=== PATIENT | female | born 1940 | race Caucasian/White ===

== ENCOUNTER 2020-12-12 17:45 | Inpatient (IN) | payer MEDICARE, OTHER ==
[~2020-12-12 17:45] MED LIST: Iopamidol-370 76% 500 ML 1 ML ONE
[2020-12-12] MEDS ORDERED: cefTRIAXone\\ROCEPHIN 1 GM VIAL ONE (18:22)
[2020-12-12 18:36] LABS: #Eosinphils 0.2 thou/uL (0.0-0.7); #Lymphocytes 1.9 thou/uL (1.20-3.40); #Monocytes 1.3 thou/uL (0.11-0.59); #Neutrophils 9.7 thou/uL (1.40-6.50); %Basophils 0.1 % (0.0-1.0); %Eosinophils 1.2 % (0.0-10.0); %Lymphocytes 14.6 % (21.0-51.0); %Monocytes 9.6 % (0.0-10.0); %Neutrophils 74.5 % (42.0-75.0); Hemoglobin 11.7 g/dL (12.0-16.0); Mean Corpuscular HGB CONC 32.5 g/dL (32.0-36.0); Mean Corpuscular Hemoglobin 28.4 pg (27.0-31.0); Mean Corpuscular Volume 87.2 fL (78.0-98.0); Mean Platelet Volume 8.5 fL (7.4-10.4); Platelet Count 253 thou/uL (130-400); RBC Distribution Width 13.1 % (11.5-14.5); Red Blood Cell (RBC) Count 4.13 mill/uL (4.20-5.40)
[2020-12-12 19:03] LABS: ALT (SGPT) 15 U/L (8-55); AST (SGOT) 21 U/L (5-34); Albumin 3.7 g/dL (3.4-4.8); Alkaline Phosphatase 87 U/L (40-110); Anion Gap 15 mmol/L (10-20); BUN (Urea Nitrogen) 14 mg/dL (9.8-20.1); Bilirubin, Total 0.4 mg/dL (0.2-1.2); Calc. Creatinine Clearance 0 mL/min (70-130); Calcium 9.4 mg/dL (7.8-10.44); Carbon Dioxide 25 mmol/L (23-31); Chloride 92 mmol/L (98-107); Globulin 3.3 g/dL (2.4-3.5); Glucose 132 mg/dL (83-110); Potassium 4.1 mmol/L (3.5-5.1); Sodium 128 mmol/L (136-145)
[2020-12-12] MEDS ORDERED: Vancomycin 1 GM/200 ML BAG ONE ×3 (19:13→19:48)
[2020-12-12 19:35] LABS: Anion Gap 14 mmol/L (10-20); BUN (Urea Nitrogen) 14 mg/dL (9.8-20.1); Calc. Creatinine Clearance 0 mL/min (70-130); Carbon Dioxide 25 mmol/L (23-31); Chloride 93 mmol/L (98-107); Glucose 103 mg/dL (83-110); Potassium 3.8 mmol/L (3.5-5.1); Sodium 128 mmol/L (136-145)
[2020-12-12 19:51] LABS: SARS-CoV-2 NAA Rapid Test Not Detected (NotDetected)
[2020-12-12] MEDS ORDERED: Guaifenesin DM 100-10/5 ML UDCUP PO PRN (21:52)
[2020-12-12] MEDS ORDERED: hydrALAZINE 20 MG/ML VIAL SLOW IVP PRN (22:03)
[2020-12-12 22:44] VITALS: BMI 28.6
[2020-12-12] MEDS ORDERED: guaiFENesin/Codeine 200 mg/20 mg 10 ml Cup PO PRN (23:00)
[2020-12-12] MEDS: guaiFENesin ER 600 MG TAB PO SCH ×2 (23:35→23:42)
[2020-12-13] MEDS: HYDROcodone/Acetaminophen 5/325 mg Tablet PO PRN ×3 (04:45→20:31)
[2020-12-13 06:01] LABS: Hemoglobin 10.9 g/dL (12.0-16.0); Mean Corpuscular HGB CONC 31.6 g/dL (32.0-36.0); Mean Corpuscular Hemoglobin 27.7 pg (27.0-31.0); Mean Corpuscular Volume 87.8 fL (78.0-98.0); Mean Platelet Volume 8.1 fL (7.4-10.4); Platelet Count 196 thou/uL (130-400); RBC Distribution Width 13.1 % (11.5-14.5); Red Blood Cell (RBC) Count 3.93 mill/uL (4.20-5.40); White Blood Cell (WBC) Count 9.1 thou/uL (4.8-10.8)
[2020-12-13 06:02] LABS: Band 1 % (5-11); Eosinophils 1 % (0-10); Hypochromia SLIGHT = 6-15 cells (100X) (0-5/hpf); Lymphocytes 20 % (21-51); MDiff Complete? YES; Monocytes 5 % (0-10); Neutrophil 73 % (42-75); Platelet Morphology Comment Appears Adequate
[2020-12-13 06:18] LABS: ALT (SGPT) 11 U/L (8-55); AST (SGOT) 14 U/L (5-34); Albumin 3.3 g/dL (3.4-4.8); Alkaline Phosphatase 77 U/L (40-110); Anion Gap 12 mmol/L (10-20); BUN (Urea Nitrogen) 11 mg/dL (9.8-20.1); Bilirubin, Total 0.3 mg/dL (0.2-1.2); Calc. Creatinine Clearance 65 mL/min (70-130); Calcium 9.2 mg/dL (7.8-10.44); Carbon Dioxide 28 mmol/L (23-31); Chloride 98 mmol/L (98-107); Globulin 2.9 g/dL (2.4-3.5); Glucose 88 mg/dL (83-110); Potassium 4.7 mmol/L (3.5-5.1); Protein, Total 6.2 g/dL (5.8-8.1); Sodium 133 mmol/L (136-145)
[2020-12-13] MEDS: Enoxaparin Sodium 40 MG/0.4 ML SYRINGE SC SCH (08:54)
[2020-12-13] MEDS: Cefepime 1 GM in Sodium Chloride 0.9% 100 ML IVPB SCH ×2 (08:54→20:30)
[2020-12-13] MEDS: Lisinopril 10 MG TAB PO SCH (08:55)
[2020-12-13] MEDS: Allopurinol 300 MG TAB PO SCH (08:55)
[2020-12-13] MEDS: Famotidine 20 MG TAB PO SCH ×2 (08:56→20:30)
[2020-12-13] MEDS: Aspirin 325 mg Enteric Coated Tablet PO SCH (08:56)
[2020-12-13] MEDS: Amlodipine 5 MG TAB PO SCH (08:56)
[2020-12-13] MEDS: guaiFENesin ER 600 MG TAB PO SCH ×2 (08:57→20:30)
[2020-12-13] MEDS: Lantus 1000 UNITS/10 ML VIAL SC SCH ×2 (09:20→21:17)
[2020-12-13] MEDS ORDERED: Lidocaine 4% PF 5 ML AMP NEB SCH (10:15)
[2020-12-13] MEDS ORDERED: Iopamidol-370 76% 500 ML 1 ML ONE (10:42)
[2020-12-13] MEDS: HumaLOG 300 UNITS/3 ML VIAL SC PRN ×2 (12:08→20:39)
[2020-12-13] MEDS: Atorvastatin Calcium 10 MG TAB PO SCH (20:30)
[2020-12-14] MEDS ORDERED: Fentanyl 100 MCG/2 ML VIAL ONE (06:58)
[2020-12-14] MEDS ORDERED: Rocuronium Bromide 10 MG/ML (10ML VIAL) ONE (08:00)
[2020-12-14] MEDS ORDERED: Lidocaine 1% PF 5 ML VIAL ONE (08:00)
[2020-12-14] MEDS ORDERED: Glycopyrrolate 0.2 MG/ML 5 ML SYRINGE ONE (08:00)
[2020-12-14] MEDS ORDERED: Ondansetron PF 4 MG/2 ML Vial ONE (08:00)
[2020-12-14] MEDS ORDERED: Dexamethasone 20 MG/5 ML VIAL ONE (08:00)
[2020-12-14] MEDS ORDERED: PROPOFOL 200 MG/20 ML VIAL ONE (08:00)
[2020-12-14] MEDS: guaiFENesin/Codeine 200 mg/20 mg 10 ml Cup PO PRN ×3 (10:04→22:07)
[2020-12-14] MEDS: Cefepime 1 GM in Sodium Chloride 0.9% 100 ML IVPB SCH ×2 (10:05→20:57)
[2020-12-14] MEDS: Benzonatate 100 MG CAP PO SCH ×3 (11:00→22:06)
[2020-12-14] MEDS: Amlodipine 5 MG TAB PO SCH (11:11)
[2020-12-14] MEDS: Famotidine 20 MG TAB PO SCH ×2 (11:11→20:57)
[2020-12-14] MEDS: Aspirin 325 mg Enteric Coated Tablet PO SCH (11:11)
[2020-12-14] MEDS: Lisinopril 10 MG TAB PO SCH (11:12)
[2020-12-14] MEDS: Enoxaparin Sodium 40 MG/0.4 ML SYRINGE SC SCH (11:12)
[2020-12-14] MEDS: Allopurinol 300 MG TAB PO SCH (11:12)
[2020-12-14] MEDS: Lantus 1000 UNITS/10 ML VIAL SC SCH ×2 (11:37→20:58)
[2020-12-14] MEDS: Lidocaine 5% Patch TD SCH (12:05)
[2020-12-14] MEDS ORDERED: Polyethylene Glycol 3350 17 GM Packet PO PRN (14:24)
[2020-12-14] MEDS: Docusate 100 MG CAP PO PRN ×2 (14:50→20:57)
[2020-12-14] MEDS: HumaLOG 300 UNITS/3 ML VIAL SC PRN ×2 (18:27→20:58)
[2020-12-14 19:18] LABS: Hemoglobin A1c 8.4 % (4.0-6.0)
[2020-12-14] MEDS: Atorvastatin Calcium 10 MG TAB PO SCH (20:57)
[2020-12-14] MEDS: guaiFENesin ER 600 MG TAB PO SCH (21:00)
[2020-12-15] MEDS: Transdermal Patch Removal TOP SCH ×2 (00:40→19:51)
[2020-12-15] MEDS: HYDROcodone/Acetaminophen 5/325 mg Tablet PO PRN ×2 (01:43→20:51)
[2020-12-15] MEDS: guaiFENesin/Codeine 200 mg/20 mg 10 ml Cup PO PRN ×3 (04:13→17:17)
[2020-12-15] MEDS: HumaLOG 300 UNITS/3 ML VIAL SC PRN ×4 (05:18→20:43)
[2020-12-15] MEDS: metFORMIN 500 MG TAB PO SCH ×3 (09:00→20:47)
[2020-12-15] MEDS: Hydrochlorothiazide 25 MG TAB PO SCH ×2 (09:57→12:51)
[2020-12-15] MEDS: Allopurinol 300 MG TAB PO SCH (09:57)
[2020-12-15] MEDS: Bisoprolol Fumarate/HCTZ 5 mg/6.25 mg Tablet PO SCH ×2 (09:57→12:45)
[2020-12-15] MEDS: Aspirin 325 mg Enteric Coated Tablet PO SCH (09:58)
[2020-12-15] MEDS: Cefepime 1 GM in Sodium Chloride 0.9% 100 ML IVPB SCH ×2 (09:58→21:01)
[2020-12-15] MEDS: Amlodipine 5 MG TAB PO SCH (09:58)
[2020-12-15] MEDS: Benzonatate 100 MG CAP PO SCH ×3 (09:58→19:47)
[2020-12-15] MEDS: Enoxaparin Sodium 40 MG/0.4 ML SYRINGE SC SCH (09:59)
[2020-12-15] MEDS: Famotidine 20 MG TAB PO SCH ×2 (09:59→20:46)
[2020-12-15] MEDS: Lisinopril 10 MG TAB PO SCH (09:59)
[2020-12-15] MEDS: Lantus 1000 UNITS/10 ML VIAL SC SCH ×2 (10:00→20:44)
[2020-12-15] MEDS: Lidocaine 5% Patch TD SCH (12:00)
[2020-12-15] MEDS ORDERED: metFORMIN 500 MG TAB PO SCH (12:00)
[2020-12-15] MEDS: Atorvastatin Calcium 10 MG TAB PO SCH (20:47)
[2020-12-15] MEDS: Zolpidem Tartrate 5 MG TAB PO PRN (20:56)
[2020-12-15] MEDS: Bisacodyl 5 MG TAB PO PRN (20:58)
[2020-12-16] MEDS: Benzonatate 100 MG CAP PO SCH ×3 (09:44→21:07)
[2020-12-16] MEDS: Aspirin 325 mg Enteric Coated Tablet PO SCH (09:54)
[2020-12-16] MEDS: Famotidine 20 MG TAB PO SCH ×2 (09:55→21:20)
[2020-12-16] MEDS: Hydrochlorothiazide 25 MG TAB PO SCH (09:55)
[2020-12-16] MEDS: Allopurinol 300 MG TAB PO SCH (09:55)
[2020-12-16] MEDS: metFORMIN 500 MG TAB PO SCH ×2 (09:55→21:17)
[2020-12-16] MEDS: Bisacodyl 5 MG TAB PO PRN (09:55)
[2020-12-16] MEDS: Amlodipine 5 MG TAB PO SCH (09:55)
[2020-12-16] MEDS: Lisinopril 10 MG TAB PO SCH (09:56)
[2020-12-16] MEDS: Bisoprolol Fumarate/HCTZ 5 mg/6.25 mg Tablet PO SCH (09:56)
[2020-12-16] MEDS: Cefepime 1 GM in Sodium Chloride 0.9% 100 ML IVPB SCH ×2 (09:56→21:22)
[2020-12-16] MEDS: Enoxaparin Sodium 40 MG/0.4 ML SYRINGE SC SCH (09:56)
[2020-12-16] MEDS: Lantus 1000 UNITS/10 ML VIAL SC SCH ×2 (09:57→21:20)
[2020-12-16] MEDS: guaiFENesin/Codeine 200 mg/20 mg 10 ml Cup PO PRN (09:57)
[2020-12-16] MEDS: Lidocaine 5% Patch TD SCH (13:10)
[2020-12-16] MEDS: HumaLOG 300 UNITS/3 ML VIAL SC PRN ×2 (18:23→21:21)
[2020-12-16] MEDS: HYDROcodone/Acetaminophen 5/325 mg Tablet PO PRN (21:19)
[2020-12-16] MEDS: Zolpidem Tartrate 5 MG TAB PO PRN (21:20)
[2020-12-16] MEDS: Atorvastatin Calcium 10 MG TAB PO SCH (21:20)
[2020-12-17] MEDS: Transdermal Patch Removal TOP SCH (00:22)
[2020-12-17] MEDS: metFORMIN 500 MG TAB PO SCH ×2 (10:07→20:32)
[2020-12-17] MEDS: Bisoprolol Fumarate/HCTZ 5 mg/6.25 mg Tablet PO SCH (10:08)
[2020-12-17] MEDS: Hydrochlorothiazide 25 MG TAB PO SCH (10:08)
[2020-12-17] MEDS: Bisacodyl 5 MG TAB PO PRN (10:09)
[2020-12-17] MEDS: Lisinopril 10 MG TAB PO SCH (10:09)
[2020-12-17] MEDS: Allopurinol 300 MG TAB PO SCH (10:09)
[2020-12-17] MEDS: Famotidine 20 MG TAB PO SCH ×2 (10:09→20:32)
[2020-12-17] MEDS: Amlodipine 5 MG TAB PO SCH (10:09)
[2020-12-17] MEDS: Cefepime 1 GM in Sodium Chloride 0.9% 100 ML IVPB SCH ×2 (10:10→20:32)
[2020-12-17] MEDS: Benzonatate 100 MG CAP PO SCH ×3 (10:10→20:32)
[2020-12-17] MEDS: guaiFENesin/Codeine 200 mg/20 mg 10 ml Cup PO PRN ×2 (10:11→21:05)
[2020-12-17] MEDS: HYDROcodone/Acetaminophen 5/325 mg Tablet PO PRN (10:11)
[2020-12-17] MEDS: Lantus 1000 UNITS/10 ML VIAL SC SCH ×2 (10:19→20:33)
[2020-12-17] MEDS ORDERED: Bisacodyl 10 MG SUPP PR PRN (10:26)
[2020-12-17] MEDS ORDERED: Ondansetron PF 4 MG/2 ML Vial IVP PRN (11:55)
[2020-12-17] MEDS ORDERED: Fleet Enema 133 ML BOT PR SCH (12:00)
[2020-12-17] MEDS: Metoclopramide HCl 10 MG/2 ML VIAL IVP SCH ×2 (12:29→20:32)
[2020-12-17] MEDS: Lidocaine 5% Patch TD SCH (12:30)
[2020-12-17] MEDS: Enoxaparin Sodium 40 MG/0.4 ML SYRINGE SC SCH (12:43)
[2020-12-17] MEDS: Aspirin 325 mg Enteric Coated Tablet PO SCH (12:43)
[2020-12-17] MEDS: Atorvastatin Calcium 10 MG TAB PO SCH (20:32)
[2020-12-17] MEDS: HumaLOG 300 UNITS/3 ML VIAL SC PRN (20:33)
[2020-12-17] MEDS: Zolpidem Tartrate 5 MG TAB PO PRN (21:04)
[2020-12-18] MEDS: Transdermal Patch Removal TOP SCH (00:43)
[2020-12-18] MEDS: Metoclopramide HCl 10 MG/2 ML VIAL IVP SCH (05:05)
[2020-12-18 08:50] VITALS: BP 134/75; TEMP 98.6
[2020-12-18 09:00] LABS: #Eosinphils 0.3 thou/uL (0.0-0.7); #Lymphocytes 1.9 thou/uL (1.20-3.40); #Monocytes 1.1 thou/uL (0.11-0.59); #Neutrophils 9.2 thou/uL (1.40-6.50); %Basophils 0.3 % (0.0-1.0); %Eosinophils 2.1 % (0.0-10.0); %Lymphocytes 15.5 % (21.0-51.0); %Monocytes 8.6 % (0.0-10.0); %Neutrophils 73.6 % (42.0-75.0); Hemoglobin 11.8 g/dL (12.0-16.0); Mean Corpuscular HGB CONC 30.6 g/dL (32.0-36.0); Mean Corpuscular Volume 88.2 fL (78.0-98.0); Mean Platelet Volume 8.3 fL (7.4-10.4); Platelet Count 273 thou/uL (130-400); RBC Distribution Width 13.3 % (11.5-14.5); Red Blood Cell (RBC) Count 4.37 mill/uL (4.20-5.40); White Blood Cell (WBC) Count 12.4 thou/uL (4.8-10.8)
[2020-12-18] MEDS: Bisoprolol Fumarate/HCTZ 5 mg/6.25 mg Tablet PO SCH (09:19)
[2020-12-18] MEDS: Famotidine 20 MG TAB PO SCH (09:19)
[2020-12-18] MEDS: Hydrochlorothiazide 25 MG TAB PO SCH (09:19)
[2020-12-18] MEDS: Benzonatate 100 MG CAP PO SCH (09:19)
[2020-12-18] MEDS: metFORMIN 500 MG TAB PO SCH (09:19)
[2020-12-18 09:20] LABS: Anion Gap 13 mmol/L (10-20); BUN (Urea Nitrogen) 15 mg/dL (9.8-20.1); Calc. Creatinine Clearance 63 mL/min (70-130); Calcium 9.5 mg/dL (7.8-10.44); Carbon Dioxide 28 mmol/L (23-31); Chloride 97 mmol/L (98-107); Glucose 131 mg/dL (83-110); Potassium 4.3 mmol/L (3.5-5.1); Sodium 134 mmol/L (136-145)
[2020-12-18] MEDS: Lisinopril 10 MG TAB PO SCH (09:20)
[2020-12-18] MEDS: Allopurinol 300 MG TAB PO SCH (09:20)
[2020-12-18] MEDS: Amlodipine 5 MG TAB PO SCH (09:20)
[2020-12-18] MEDS: Lantus 1000 UNITS/10 ML VIAL SC SCH (09:20)
[2020-12-18] MEDS: Cefepime 1 GM in Sodium Chloride 0.9% 100 ML IVPB SCH (09:22)
[2020-12-18] MEDS ORDERED: Furosemide 20 MG/2 ML VIAL SLOW IVP SCH (10:45)
== END 2020-12-18 12:15 | disposition home or self-care (01) | DRG 167 ==
LOC: ERS 17:45 → ONC 20:27
PROVIDERS: ADMIT Internal Medicine; ATTEND Internal Medicine
PROC: 0BBD8ZX Excision of Right Middle Lung Lobe, Via Natural or Artificial Opening Endoscopic, Diagnostic (ICD-10-PCS; principal; 2020-12-14)
PROC: 0BDD8ZX Extraction of Right Middle Lung Lobe, Via Natural or Artificial Opening Endoscopic, Diagnostic (ICD-10-PCS; 2020-12-14)
DX: J98.4 Other disorders of lung (principal); K86.3 Pseudocyst of pancreas; J98.11 Atelectasis; E87.1 Hypo-osmolality and hyponatremia; E44.0 Moderate protein-calorie malnutrition; J18.9 Pneumonia, unspecified organism; Z66 Do not resuscitate; Z20.822 Contact with and (suspected) exposure to COVID-19; M10.9 Gout, unspecified; E78.5 Hyperlipidemia, unspecified; E78.00 Pure hypercholesterolemia, unspecified; K21.9 Gastro-esophageal reflux disease without esophagitis; E11.9 Type 2 diabetes mellitus without complications; I10 Essential (primary) hypertension; Z77.22 Contact with and (suspected) exposure to environmental tobacco smoke (acute) (chronic); G89.29 Other chronic pain; K59.00 Constipation, unspecified; R11.2 Nausea with vomiting, unspecified; Z90.49 Acquired absence of other specified parts of digestive tract; Z90.710 Acquired absence of both cervix and uterus; Z98.890 Other specified postprocedural states; Z80.3 Family history of malignant neoplasm of breast; Z80.0 Family history of malignant neoplasm of digestive organs; Z79.899 Other long term (current) drug therapy; Z79.82 Long term (current) use of aspirin; Z79.4 Long term (current) use of insulin; Z68.28 Body mass index [BMI] 28.0-28.9, adult
CPT/HCPCS: 0240U; 36415; 36416; 71045; 71275; 74178; 80048; 80053; 82378; 83036; 83605; 83880; 84484; 85007; 85025; 85027; 86301; 87040; 88112; 88305; 88341; 88342; 93005; 94760; 96365; 96367; J0692; J0696; J1100; J1650; J1815; J2405; J2704; J2765; J3010; J3370; J3490; J7620; Q9967

== ENCOUNTER 2020-12-30 15:12 | Observation (INO) | payer MEDICARE, OTHER ==
[2020-12-30] MEDS ORDERED: Bisacodyl 5 MG TAB PO PRN (17:04)
[2020-12-30] MEDS ORDERED: Ondansetron PF 4 MG/2 ML Vial IVP PRN (17:04)
[2020-12-30] MEDS ORDERED: Dextrose 5% in Water 1,000 ML IV PRN (17:06)
[2020-12-30] MEDS ORDERED: Dextrose 50% Abboject 50 ML SYRINGE SLOW IVP PRN (17:06)
[2020-12-30] MEDS ORDERED: Atorvastatin Calcium 10 MG TAB PO SCH (21:00)
[2020-12-30] MEDS: Acetaminophen 325 MG TAB PO PRN (21:41)
[2020-12-30] MEDS: Lantus 1000 UNITS/10 ML VIAL SC SCH (21:43)
[2020-12-30] MEDS: Naproxen 500 MG TAB PO PRN (22:24)
[2020-12-31] MEDS: Acetaminophen 325 MG TAB PO PRN ×2 (02:18→06:14)
[2020-12-31 05:15] LABS: #Basophils 0.1 thou/uL (0.0-0.2); #Eosinphils 0.2 thou/uL (0.0-0.7); #Monocytes 0.8 thou/uL (0.11-0.59); %Basophils 0.6 % (0.0-1.0); %Eosinophils 2.2 % (0.0-10.0); %Lymphocytes 22.4 % (21.0-51.0); %Monocytes 8.9 % (0.0-10.0); %Neutrophils 65.8 % (42.0-75.0); Hemoglobin 11.6 g/dL (12.0-16.0); Mean Corpuscular HGB CONC 31.4 g/dL (32.0-36.0); Mean Corpuscular Hemoglobin 27.6 pg (27.0-31.0); Mean Corpuscular Volume 87.9 fL (78.0-98.0); Mean Platelet Volume 9.1 fL (7.4-10.4); Platelet Count 181 thou/uL (130-400); RBC Distribution Width 13.3 % (11.5-14.5); White Blood Cell (WBC) Count 9.1 thou/uL (4.8-10.8)
[2020-12-31 05:39] LABS: Anion Gap 10 mmol/L (10-20); BUN (Urea Nitrogen) 15 mg/dL (9.8-20.1); Calc. Creatinine Clearance 67 mL/min (70-130); Calcium 9.1 mg/dL (7.8-10.44); Carbon Dioxide 26 mmol/L (23-31); Chloride 95 mmol/L (98-107); Glucose 179 mg/dL (83-110); Potassium 4.1 mmol/L (3.5-5.1); Sodium 127 mmol/L (136-145)
[2020-12-31] MEDS: HumaLOG 300 UNITS/3 ML VIAL SC PRN ×2 (06:18→11:23)
[2020-12-31] MEDS ORDERED: metFORMIN XR 500 MG TAB PO SCH (08:00)
[2020-12-31] MEDS: Lantus 1000 UNITS/10 ML VIAL SC SCH (08:46)
[2020-12-31] MEDS: Naproxen 500 MG TAB PO PRN (08:52)
[2020-12-31] MEDS ORDERED: Lisinopril 10 MG TAB PO SCH (09:00)
[2020-12-31] MEDS ORDERED: Lactinex Tablet PO SCH (09:00)
[2020-12-31] MEDS ORDERED: Bisoprolol Fumarate/HCTZ 5 mg/6.25 mg Tablet PO SCH (09:00)
[2020-12-31] MEDS ORDERED: Allopurinol 300 MG TAB PO SCH (09:00)
[2020-12-31] MEDS ORDERED: Calcium Carbonate 600 MG + Vit D TAB PO SCH (09:00)
[2020-12-31] MEDS ORDERED: Aspirin 81 mg Enteric Coated Tablet PO SCH (09:00)
[2020-12-31] MEDS ORDERED: Hydrochlorothiazide 25 MG TAB PO SCH (09:00)
[2020-12-31] MEDS ORDERED: Amlodipine 5 MG TAB PO SCH (09:00)
[2020-12-31] MEDS ORDERED: HYDROcodone/Acetaminophen 5/325 mg Tablet PO PRN ×2 (09:16→09:18)
[2020-12-31] MEDS: Acetaminophen/Codeine 30-300mg Tablet PO PRN ×2 (09:55→15:29)
[2020-12-31 12:11] VITALS: BP 111/61; TEMP 98
[2020-12-31 13:25] VITALS: BMI 27.4
== END 2020-12-31 15:37 | disposition home or self-care (01) ==
LOC: 2SW 15:12
PROVIDERS: ADMIT Internal Medicine; ATTEND Internal Medicine
DX: J93.9 Pneumothorax, unspecified (principal); R91.1 Solitary pulmonary nodule; C80.1 Malignant (primary) neoplasm, unspecified; K86.9 Disease of pancreas, unspecified; I10 Essential (primary) hypertension; E11.9 Type 2 diabetes mellitus without complications; Z79.4 Long term (current) use of insulin; Z79.82 Long term (current) use of aspirin; Z79.899 Other long term (current) drug therapy
CPT/HCPCS: 32408; 36415; 36416; 71045; 77012; 80048; 85025; 85610; 85730; G0378; J1815

== ENCOUNTER → 2020-12-30 | Day surgery (SDC) | payer MEDICARE, OTHER ==
[2020-12-23 15:28] VITALS: BMI 27.4
[2020-12-30 08:51] LABS: #Eosinphils 0.2 thou/uL (0.0-0.7); #Lymphocytes 2.3 thou/uL (1.20-3.40); #Neutrophils 9.6 thou/uL (1.40-6.50); %Basophils 0.3 % (0.0-1.0); %Eosinophils 1.5 % (0.0-10.0); %Lymphocytes 17.5 % (21.0-51.0); %Monocytes 7.7 % (0.0-10.0); %Neutrophils 73.1 % (42.0-75.0); Hemoglobin 12.9 g/dL (12.0-16.0); Mean Corpuscular HGB CONC 32.4 g/dL (32.0-36.0); Mean Corpuscular Hemoglobin 28.2 pg (27.0-31.0); Mean Corpuscular Volume 87.2 fL (78.0-98.0); Mean Platelet Volume 8.8 fL (7.4-10.4); Platelet Count 247 thou/uL (130-400); RBC Distribution Width 13.6 % (11.5-14.5); Red Blood Cell (RBC) Count 4.58 mill/uL (4.20-5.40); White Blood Cell (WBC) Count 13.2 thou/uL (4.8-10.8)
[2020-12-30 09:02] LABS: INR-International Normal Ratio 0.9; PTT 25.7 sec (22.9-36.1); Prothrombin Time 12.8 sec (12.0-14.7)
== END ==
LOC: CT 08:22
PROVIDERS: ATTEND Internal Medicine Critical Care Medicine
PROC: 0BDJ4ZX Extraction of Left Lower Lung Lobe, Percutaneous Endoscopic Approach, Diagnostic (ICD-10-PCS; principal; 2020-12-30)
DX: C34.32 Malignant neoplasm of lower lobe, left bronchus or lung (principal); E11.9 Type 2 diabetes mellitus without complications; I11.9 Hypertensive heart disease without heart failure; I45.10 Unspecified right bundle-branch block; K21.9 Gastro-esophageal reflux disease without esophagitis; C25.9 Malignant neoplasm of pancreas, unspecified; C78.01 Secondary malignant neoplasm of right lung; I70.0 Atherosclerosis of aorta; J93.9 Pneumothorax, unspecified; Z66 Do not resuscitate; Z79.4 Long term (current) use of insulin; Z79.899 Other long term (current) drug therapy
CPT/HCPCS: 32408; 71045; 77012; 85025; 85610; 85730

== ENCOUNTER 2021-01-17 08:54 | Outpatient (CLI) | payer MEDICARE, OTHER | END 2021-01-17 08:55 | disposition home or self-care (01) | LOC: PET 08:54 | PROVIDERS: ATTEND Internal Medicine Hematology & Oncology | DX: C34.11 Malignant neoplasm of upper lobe, right bronchus or lung (principal); C79.51 Secondary malignant neoplasm of bone; R91.8 Other nonspecific abnormal finding of lung field; K86.89 Other specified diseases of pancreas; E27.8 Other specified disorders of adrenal gland | CPT/HCPCS: 78815; A9552 ==

== ENCOUNTER 2021-01-18 11:31 | Outpatient (CLI) | payer MEDICARE, OTHER ==
[~2021-01-18 11:31] MED LIST changes: -Iopamidol-370 76% 500 ML 1 ML ONE; +Magnevist 469MG/ML 20 ML VIAL ONE
== END 2021-01-18 11:32 | disposition home or self-care (01) ==
LOC: MRI 11:31
PROVIDERS: ATTEND Internal Medicine Hematology & Oncology
DX: C34.11 Malignant neoplasm of upper lobe, right bronchus or lung (principal); G93.9 Disorder of brain, unspecified
CPT/HCPCS: 70553; A9579

== ENCOUNTER 2021-03-01 10:04 | Emergency (ER) | payer MEDICARE, OTHER | END 2021-03-01 17:53 | disposition home or self-care (01) | LOC: ERS 10:04 | DX: C34.90 Malignant neoplasm of unspecified part of unspecified bronchus or lung (principal); R09.02 Hypoxemia; E11.9 Type 2 diabetes mellitus without complications; I10 Essential (primary) hypertension; M10.9 Gout, unspecified; K21.9 Gastro-esophageal reflux disease without esophagitis; E78.00 Pure hypercholesterolemia, unspecified | CPT/HCPCS: 36415; 71046; 71275; 80053; 83880; 84484; 85025; 85379; 93005; Q9967 ==

== ENCOUNTER 2021-05-02 09:27 | Outpatient (CLI) | payer MEDICARE, OTHER ==
[2021-05-02] MEDS ORDERED: Magnevist 469MG/ML 20 ML VIAL ONE (12:12)
== END 2021-05-02 09:28 | disposition home or self-care (01) ==
LOC: MRI 09:27
PROVIDERS: ATTEND Radiology Radiation Oncology
DX: C79.31 Secondary malignant neoplasm of brain (principal); C79.51 Secondary malignant neoplasm of bone; C80.1 Malignant (primary) neoplasm, unspecified
CPT/HCPCS: 70553; A9579

== ENCOUNTER 2021-06-27 15:42 | Outpatient (CLI) | payer MEDICARE, OTHER ==
[~2021-06-27 15:42] MED LIST changes: +Iopamidol 370 76% 100 ML VIAL ONE; -Magnevist 469MG/ML 20 ML VIAL ONE
== END 2021-06-27 15:43 | disposition home or self-care (01) ==
LOC: CT 15:42
PROVIDERS: ATTEND Internal Medicine Hematology & Oncology
DX: C34.11 Malignant neoplasm of upper lobe, right bronchus or lung (principal); I26.99 Other pulmonary embolism without acute cor pulmonale; R06.02 Shortness of breath; C79.71 Secondary malignant neoplasm of right adrenal gland; C79.72 Secondary malignant neoplasm of left adrenal gland; J98.11 Atelectasis; J90 Pleural effusion, not elsewhere classified; J98.6 Disorders of diaphragm
CPT/HCPCS: 71275; 80048